=== PATIENT | female | born 1990 | race African-American/Black ===

== ENCOUNTER 2023-02-09 22:56 | Emergency (ER) | payer BC ==
[2023-02-10] MEDS ORDERED: Ketorolac Tromethamine 30 MG/ML VIAL ONE (00:21)
== END 2023-02-10 00:35 | disposition home or self-care (01) ==
LOC: CSHERS 22:56
DX: M54.50 Low back pain, unspecified (principal)
CPT/HCPCS: 96372; 99283; J1885

== ENCOUNTER 2024-03-20 09:54 | Emergency (ER) | payer BC ==
[2024-03-20] MEDS ORDERED: Ibuprofen 200 MG TAB ONE (10:17)
[2024-03-20] MEDS ORDERED: Acetaminophen 500 MG TAB ONE (10:17)
== END 2024-03-20 10:48 | disposition home or self-care (01) ==
LOC: CSHERS 09:54
DX: R07.89 Other chest pain (principal); Z55.0 Illiteracy and low-level literacy; F17.210 Nicotine dependence, cigarettes, uncomplicated
CPT/HCPCS: 71045; 93005